=== PATIENT | female | born 1990 | race Hispanic/Latino ===

== ENCOUNTER 2019-01-21 09:04 | Observation (INO) | payer MEDICAID ==
[2019-01-21 09:58] VITALS: BP 118/64
[2019-01-21] MEDS ORDERED: LACTATED RINGERS 1,000 ML ONE (10:14)
--- NOTE | 2019-01-21 12:04 | Ultrasound Report ---
. ULTRASOUND BIOPHYSICAL PROFILE INDICATION: IUP at 37 wks, Diabetes, Well Being. COMPARISON: None available. FINDINGS: heart rate is 133 beats per minute. breathing movement = 2 Gross body movement = 2 tone = 2 Qualitative amniotic fluid volume = 2 IMPRESSION: biophysical profile = 11/08 Signer Name: Jasbir Berumen Jr, MD Signed: 01/21/2019 12:00 PM Workstation Name: [id number]
== END 2019-01-21 12:25 | disposition home or self-care (01) ==
LOC: LD 09:04 → INTOOBSV 09:04
PROVIDERS: ADMIT Obstetrics & Gynecology; ATTEND Obstetrics & Gynecology
DX: O24.419 Gestational diabetes mellitus in pregnancy, unspecified control (principal); Z3A.37 37 weeks gestation of pregnancy
CPT/HCPCS: 76819; 82962; G0378; G0379; J7120

== ENCOUNTER 2019-03-07 09:45 | Outpatient (CLI) | payer MEDICAID ==
[2019-03-07] MEDS ORDERED: SINCALIDE 5 MCG VIAL IV ONE ×2 (10:46→10:55)
[2019-03-07] MEDS ORDERED: WATER FOR INJ Sterile (PF) 10 ML ONE (10:47)
[2019-03-07] MEDS ORDERED: WATER FOR INJ Sterile (PF) 10 ML IV ONE (11:35)
--- NOTE | 2019-03-07 12:54 | Nuclear Medicine Report ---
NUCLEAR MEDICINE HEPATOBILIARY SCAN INDICATION: R19.36 EPIGASTRIC ABDOMINAL RIGIDITY. TECHNIQUE: Radiotracer: Tc-99m mebrofenin (by IV): mCi. Gallbladder Stimulant: 1.9 mcg of CCK FINDINGS: Hepatic activity: Normal. Biliary activity: Normal. Common bile duct activity at 10 minutes. Gallbladder activity: Normal at 30-45 minutes. Small bowel activity: Normal at 20 minutes. The gallbladder ejection fraction measures 86%. The patient reports mild nausea and cramping following the infusion of CCK. IMPRESSION: No biliary obstruction. Normal gallbladder ejection fraction. Symptomatology as described. Signer Name: Jasbir Berumen Jr, MD Signed: 03/07/2019 12:49 PM Workstation Name: [id number]
== END 2019-03-07 09:46 | disposition home or self-care (01) ==
LOC: NM 09:45
PROVIDERS: ATTEND Surgery
DX: R00-R99 Symptoms, signs and abnormal clinical and laboratory findings, not elsewhere classified (principal)
CPT/HCPCS: 78227; A9537; J2805